=== PATIENT | male | born 1940 | race Caucasian/White ===

== ENCOUNTER 2024-08-31 13:56 | Emergency (ER) | payer OTHER, MEDICARE ==
[~2024-08-31] VITALS: Ht 172.7 cm; Wt 88.1 kg
[2024-08-31] MEDS ORDERED: LACTATED RINGER'S 1,000 ML IV ONE (14:15)
[2024-08-31] MEDS ORDERED: SODIUM CHLORIDE 0.9% 1,000 ML IV PRN (14:15)
[2024-08-31 14:24] LABS: BASOPHILS 0.6 % (0-2); EOSINOPHILS 1.8 % (0-6); HEMATOCRIT 33.3 % (35.0-50.0); HEMOGLOBIN 11.1 g/dL (12.0-18.0); LYMPHOCYTES 14.8 % (24-44); MCHC 33.2 g/dl (30-36); MCV 90.2 fl (81-99); MONOCYTES 8.1 % (0-12); NEUTROPHILS 74.7 % (39-80); PLATELET COUNT 104 K/uL (140-440); RBC 3.69 M/ul (4.3-5.7); RDW 15.2 (10.5-15.0)
[2024-08-31 14:40] LABS: ALBUMIN 2.7 g/dL (3.4-5.0); ALBUMIN/GLOBULIN RATIO 1.08 (1.1-2.4); ALCOHOL, MEDICAL <3 ng/dL (<3); ALKALINE PHOSPHATASE 58 U/L (46-116); ALT (SGPT) 11 U/L (14-59); ANION GAP 12.8 (7-21); AST (SGOT) 12 U/L (15-37); BILIRUBIN, TOTAL 0.2 mg/dL (0.2-1.0); BUN/CREATININE RATIO 14.21 (6.0-28.6); CALCIUM 8.2 mg/dL (8.5-10.1); CARBON DIOXIDE 23 mmol/L (21-32); CHLORIDE 109 mmol/L (98-107); GLOMERULAR FILTRATION RATE,EST 34 mL/min (>60); POTASSIUM 3.8 mmol/L (3.5-5.1); PROTEIN, TOTAL 5.2 g/dL (6.4-8.2); UREA NITROGEN 27 mg/dL (7-18)
[2024-08-31] MEDS ORDERED: MORPHINE SULFATE 4 MG/ML VIAL IV ONE (15:00)
[2024-08-31] MEDS ORDERED: ondansetron HCL 4 MG/2 ML VIAL IV ONE (15:00)
[2024-08-31] MEDS ORDERED: TRANEXAMIC ACID 1,000 MG/10 ML AMP ONE (15:03)
[2024-08-31 15:13] LABS: ABO O; ANTIBODY SCREEN NEGATIVE; RH POSITIVE
[2024-08-31] MEDS ORDERED: TRANEXAMIC ACID IN NACL,ISO-OS 1,000 MG/100 ML PIGGYBACK IV ONE (15:15)
[2024-08-31] MEDS ORDERED: TRANEXAMIC ACID 1,000 MG/10 ML AMP IV ONE (15:15)
[2024-08-31] MEDS ORDERED: SODIUM CHLORIDE 0.9% 50 ML IV PRN (15:15)
[2024-08-31] MEDS ORDERED: diphenhydrAMINE HCL 50 MG/ML VIAL IV PRN (15:15)
[2024-08-31] MEDS ORDERED: HUMAN PROTHROMBIN COMPLX(PCC) 500 UNIT/20 ML VIAL IV ONE (15:15)
[2024-08-31 15:45] VITALS: BP 95/73
[2024-08-31 16:19] LABS: IS CROSSMATCH COMPATIBLE
--- NOTE | 2024-08-31 21:41 | EKG ---
[facility] [address] [place] [address] Signed Sinus bradycardia Inferior-posterior infarct , age undetermined Abnormal ECG No previous ECGs available Confirmed by Luciano Amador MD () on 08/31/2024 9:40:55 PM Electronically Signed By: LUCIANO AMADOR MD [id number] PATIENT NAME: NORMA MACIAS MELVIN Electrocardiogram DATE OF : 36 PHYSICIAN: LUCIANO AMADOR MD REPORT #: [id number] REPORT IS CONFIDENTIAL AND NOT TO BE RELEASED WITHOUT AUTHORIZATION
[2024-09-09 11:08] LABS: IS CROSSMATCH COMPATIBLE
== END 2024-08-31 15:45 | disposition short-term general hospital (02) ==
LOC: ED 13:56
PROVIDERS: Emergency Medicine
DX: I71.30 Abdominal aortic aneurysm, ruptured, unspecified (principal)
CPT/HCPCS: 36415; 36430; 70450; 71045; 71260; 72125; 74177; 80053; 80307; 85025; 86850; 86900; 86901; 86922; 93005; 93010; 99291; G0390; G0480; J2270; J2405; J7030; J7121; J7168; P9016; P9059; Q9967